=== PATIENT | male | born 1975 ===

== ENCOUNTER 2024-08-24 06:04 | Day surgery (SDC) | payer OTHER ==
[2024-08-24] MEDS: Lactated Ringers 1,000 ML IV SCH (06:20)
[2024-08-24] MEDS ORDERED: propofoL IV ONE ×2 (07:32→07:36)
[2024-08-24 08:18] VITALS: PULSE 71; RESP 18
[2024-08-24 08:30] VITALS: BP 123/93; TEMP 97.8; O2SAT 100
--- NOTE | 2024-08-26 08:18 | OP ---
SURGERY DATE/TIME: 08/24/2024 [id number] PREOPERATIVE DIAGNOSIS: Screening exam. POSTOPERATIVE DIAGNOSIS: Polyps in the transverse and rectosigmoid area. PROCEDURE: Colonoscopy with cold forceps biopsy. SURGEON: Drake Sanabria MD ANESTHESIA: Medications given by the anesthesia department. INDICATIONS: The patient is a 49-year-old white male patient presenting now for screening colonoscopy. The patient was appraised of the risks of the procedure including risk of perforation, phlebitis, untoward reaction to medication, bleeding, and missed lesions. The patient verbalized his understanding and desire to have procedure performed. DESCRIPTION OF PROCEDURE AND FINDINGS: The patient was given medication by the anesthesia department. He had continuous pulse oximetry, ECG monitoring, intermittent blood pressure monitoring during the examination. He was placed in left lateral decubitus position. Digital rectal examination was performed, revealed normal anal sphincter tone, no masses, and a normal prostate. The flexible Olympus videocolonoscope was used to intubate the rectum. A view of the colon was developed sequentially to the cecum. Upon insertion and withdrawal, there was noted to be a small polyp in the transverse colon. This was biopsied and destroyed using the cold biopsy forceps instrument. There was also a small polyp in the rectosigmoid area. This was likewise treated with the cold biopsy forceps instrument, destroying the lesion. No other mucosal lesions being encountered, the scope was removed from the patient who tolerated the procedure well and was sent back to outpatient recovery in good condition. The prep was noted to be fair to good.
== END 2024-08-24 08:34 | disposition home or self-care (01) ==
LOC: SDC 06:04
PROVIDERS: ATTEND Family Medicine
DX: Z12.11 Encounter for screening for malignant neoplasm of colon (principal); D12.5 Benign neoplasm of sigmoid colon
CPT/HCPCS: J2704